=== PATIENT | male | born 1950 | race American Indian/Alaskan Native ===

== ENCOUNTER 2018-09-29 11:04 | Emergency (ER) | payer OTHER ==
[~2018-09-29] VITALS: Ht 190.5 cm; Wt 94.8 kg
[2018-09-29 11:09] VITALS: TEMP 98.8
[2018-09-29 13:48] VITALS: BP 133/82
== END 2018-09-29 13:48 | disposition home or self-care (01) ==
LOC: ED 11:04
PROC: 2W39X1Z Immobilization of Left Upper Extremity using Splint (ICD-10-PCS; principal; 2018-09-29)
DX: S42.215A Unspecified nondisplaced fracture of surgical neck of left humerus, initial encounter for closed fracture (principal); W18.39XA Other fall on same level, initial encounter; Y93.89 Activity, other specified; Y92.89 Other specified places as the place of occurrence of the external cause
CPT/HCPCS: 99283

== ENCOUNTER 2022-03-15 12:38 | Outpatient (CLI) | payer OTHER ==
[2022-03-15 13:15] LABS: PLATELET COUNT 229 K/uL (142-355)
[2022-03-15 13:23] LABS: POTASSIUM 3.7 mmol/L (3.6-5.2)
== END 2022-03-15 20:48 | disposition home or self-care (01) ==
LOC: LAB 12:38
PROVIDERS: ATTEND Internal Medicine
DX: I10 Essential (primary) hypertension (principal); N40.0 Benign prostatic hyperplasia without lower urinary tract symptoms; Z12.5 Encounter for screening for malignant neoplasm of prostate
CPT/HCPCS: 80053; 80061; 81000; 84153; 84439; 84443; 85027

== ENCOUNTER 2022-03-27 10:10 | Outpatient (CLI) | payer OTHER | END 2022-03-27 19:11 | disposition home or self-care (01) | LOC: RESP 10:10 | PROVIDERS: ATTEND Internal Medicine | DX: I10 Essential (primary) hypertension (principal) ==